=== PATIENT | male | born 1965 | race African-American/Black ===

== ENCOUNTER 2021-05-09 15:39 | Inpatient (IN) | payer OTHER ==
[~2021-05-09] VITALS: Ht 182.9 cm; Wt 99.8 kg
== END 2021-05-17 22:42 | disposition expired | DRG 64 ==
LOC: ER 15:39 → ICU 21:16 → ICU-2 21:16 → ICU 05-12 03:02
PROVIDERS: ADMIT Internal Medicine; ATTEND Internal Medicine
PROC: 0BH17EZ Insertion of Endotracheal Airway into Trachea, Via Natural or Artificial Opening (ICD-10-PCS; principal; 2021-05-09)
PROC: 5A1955Z Respiratory Ventilation, Greater than 96 Consecutive Hours (ICD-10-PCS; 2021-05-09)
PROC: 02HV33Z Insertion of Infusion Device into Superior Vena Cava, Percutaneous Approach (ICD-10-PCS; 2021-05-12)
PROC: 4A033R1 Measurement of Arterial Saturation, Peripheral, Percutaneous Approach (ICD-10-PCS; 2021-05-13)
DX: I63.89 Other cerebral infarction (principal); J96.00 Acute respiratory failure, unspecified whether with hypoxia or hypercapnia; I16.1 Hypertensive emergency; N17.8 Other acute kidney failure; N39.0 Urinary tract infection, site not specified; G81.94 Hemiplegia, unspecified affecting left nondominant side; I43 Cardiomyopathy in diseases classified elsewhere; E87.0 Hyperosmolality and hypernatremia; E87.2 Acidosis; I10 Essential (primary) hypertension